=== PATIENT | male | born 1990 | race Two or more races ===

== ENCOUNTER 2017-05-02 05:23 | Emergency (ER) | payer MEDICAID, OTHER ==
[~2017-05-02] VITALS: Ht 160 cm; Wt 90.0 kg
[2017-05-02] MEDS ORDERED: IBUPROFEN 600MG TABLET PO ONE (08:45)
[2017-05-02 08:54] VITALS: BP 130/73
== END 2017-05-02 09:38 | disposition home or self-care (01) ==
LOC: ER 08:29
DX: L03.116 Cellulitis of left lower limb (principal); F12.10 Cannabis abuse, uncomplicated
CPT/HCPCS: 99283